=== PATIENT | male | born 1935 | race African-American/Black ===

== ENCOUNTER 2019-12-13 02:56 | Inpatient (IN) | payer MEDICARE, OTHER ==
[~2019-12-13] VITALS: Ht 185.4 cm; Wt 81.3 kg
[2019-12-13] VITALS (37 sets, daily range): BP systolic 77–207; BP diastolic 54–120
[~2019-12-13 02:56] MED LIST: [UNRECOGNIZED DRUG - REMARK]
[2019-12-13] MEDS ORDERED: SUCCINYLCHOLINE CHLORIDE 200MG/10ML IV ONE ×2 (03:09→03:30)
[2019-12-13] MEDS ORDERED: ETOMIDATE 2MG/ML 10ML VIAL IV ONE ×2 (03:09→03:30)
[2019-12-13] MEDS ORDERED: ONDANSETRON HCL 4MG/2ML INJ IV STA (03:18)
[2019-12-13] MEDS ORDERED: NITROGLYCERIN 50MG PREMIX 250 ML IV ONE (03:18)
[2019-12-13] MEDS ORDERED: MORPHINE SULFATE 4 MG/ML CPJ (NOT FOR IM USE) IV STA (03:18)
[2019-12-13] MEDS ORDERED: MIDAZOLAM HCL 2 MG/2 ML VIAL ONE (03:26)
[2019-12-13] MEDS ORDERED: MIDAZOLAM HCL 2 MG/2 ML VIAL IV ONE (03:30)
[2019-12-13] MEDS ORDERED: FUROSEMIDE 40MG/4ML VIAL IV ONE (03:30)
[2019-12-13] MEDS ORDERED: PROPOFOL 10MG/ML 100ML 100 ML IV ONE (03:30)
[2019-12-13 03:52] LABS: BASOPHILS % 0.2 % (0.0-2.0); EOSINOPHILS % 1.1 % (0.0-5.0); HEMATOCRIT. 37.4 % (42.0-52.0); HEMOGLOBIN. 12.1 g/dL (14.0-18.0); LYMPHOCYTES % 21.1 % (20.0-50.0); MEAN CORPUSCULAR HEMOGLOBIN 29.4 pg (28.0-32.0); MEAN CORPUSCULAR VOLUME 90.9 fL (80.0-94.0); MEAN PLATELET VOLUME 11.3 fl (7.4-10.4); MONOCYTES % 9.2 % (2.0-8.0); NEUTROPHILS % 68.4 % (40.0-76.0); PLATELET 147 x1000/uL (130-400); RED BLOOD CELL COUNT 4.11 mill/uL (4.7-6.1); RED CELL DISTRIBUTION WIDTH 14.6 % (11.6-14.6)
[2019-12-13 03:57] LABS: CHLORIDE 113 mEq/L (98-107)
[2019-12-13 04:46] LABS: CLARITY URINE CLOUDY (CLEAR); KETONES URINE NEGATIVE (NEGATIVE); LEUKOCYTE ESTERASE URINE 1+ (NEGATIVE); NITRITE URINE NEGATIVE (NEGATIVE); OCCULT BLOOD URINE 3+ (NEGATIVE); PH URINE 6.5 (4.5-8.0); PROTEIN URINE 1+ (NEGATIVE); SPECIFIC GRAVITY URINE 1.008 (1.005-1.030); UROBILINOGEN URINE 0.2 E.U./dL (0.2-1.0)
[2019-12-13 04:52] LABS: COLOR URINE YELLOW (YELLOW)
[2019-12-13 04:54] LABS: BG BASE EXCESS -5.7 mmol/L (-2.0-2.0); BG CARBOXYHEMOGLOBIN 0.2 % (0.5-1.5); BG DEOXYHEMOGLOBIN 1.1 % (0.0-5.0); BG FRACTION INSPIRED OXYGEN 100; BG HCO3 ACT 20.4 mmol/L (22.0-26.0); BG METHEMOGLOBIN 0.3 % (0.0-1.5); BG OXYGEN SATURATION 98.9 % (92.0-98.5); BG OXYHEMOGLOBIN 98.4 % (94.0-97.0); BG PCO2 42.1 mmHg (35.0-45.0); BG PH 7.303 (7.350-7.450); BG PO2 190.7 mmHg (75.0-100.0); BG SAMPLE SITE LEFT RADIAL; BG TIDAL VOLUME(mL) 500 mL; BG TOTAL HEMOGLOBIN 11.4 g/dL (12.0-18.0); BG VENT MODE VENT - A/C; BG VENT RATE 16 set
[2019-12-13 05:16] LABS: INR 1.1
[2019-12-13] MEDS ORDERED: VANCOMYCIN 1 G PREMIX 200 ML IV ONE (06:00)
[2019-12-13] MEDS ORDERED: PIPERACILLIN/TAZ 3.375G PREMIX 50 ML IV ONE (06:00)
[2019-12-13] MEDS: PROPOFOL 10MG/ML 100ML 100 ML IV PRN ×2 (06:46→18:29)
[2019-12-13] MEDS ORDERED: AZITHROMYCIN 500 MG in DEXT 5% WATER 250 ML IV SCH (09:15)
[2019-12-13] MEDS ORDERED: ACETAMINOPHEN 325MG TABLET PO PRN (09:15)
[2019-12-13] MEDS ORDERED: ENOXAPARIN 40MG/0.4ML SYR SUBCUT SCH (09:15)
[2019-12-13] MEDS ORDERED: SODIUM POLYSTYRENE SULFONATE 15 G/60 ML BOT PO NR (09:30)
[2019-12-13 09:52] LABS: HEMOGLOBIN 11.5 g/dL (14.0-18.0); MEAN CORPUSCULAR HEMOGLOBIN 29.4 pg (28.0-32.0); MEAN CORPUSCULAR VOLUME 89.3 fL (80.0-94.0); PLATELET 131 x1000/uL (130-400); RED BLOOD CELL COUNT 3.92 mill/uL (4.7-6.1); RED CELL DISTRIBUTION WIDTH 14.7 % (11.6-14.6)
[2019-12-13] MEDS ORDERED: AZITHROMYCIN 500 MG in DEXT 5% WATER 250 ML IV NR (10:00)
[2019-12-13] MEDS ORDERED: PIPERACILLIN/TAZ 3.375G PREMIX 50 ML IV NR (10:00)
[2019-12-13] MEDS: FAMOTIDINE 20MG/2ML VIAL IV SCH (15:23)
[2019-12-13] MEDS: ENOXAPARIN 30MG/0.3ML SYR SUBCUT SCH (15:23)
[2019-12-13 15:42] LABS: BG BASE EXCESS 0.1 mmol/L (-2.0-2.0); BG CARBOXYHEMOGLOBIN 0.4 % (0.5-1.5); BG DEOXYHEMOGLOBIN 1.9 % (0.0-5.0); BG FRACTION INSPIRED OXYGEN 60; BG HCO3 ACT 24.5 mmol/L (22.0-26.0); BG METHEMOGLOBIN 0.3 % (0.0-1.5); BG OXYGEN SATURATION 98.1 % (92.0-98.5); BG OXYHEMOGLOBIN 97.4 % (94.0-97.0); BG PCO2 38.8 mmHg (35.0-45.0); BG PH 7.418 (7.350-7.450); BG SAMPLE SITE RIGHT RADIAL; BG TIDAL VOLUME(mL) 500 mL; BG TOTAL HEMOGLOBIN 11.9 g/dL (12.0-18.0); BG VENT MODE VENT - A/C; BG VENT RATE 16 set
[2019-12-13] MEDS ORDERED: PIPERACILLIN/TAZ 3.375G PREMIX 50 ML IV SCH (16:00)
[2019-12-13] MEDS: LORAZEPAM 2MG/ML CPJ IV PRN (16:44)
[2019-12-13] MEDS ORDERED: FUROSEMIDE 100MG/10ML VIAL IVP ONE (16:45)
[2019-12-13] MEDS: PIPERACILLIN/TAZOBACTAM 2.25 G in DEXTROSE 5% WATER 50 ML IV SCH (17:32)
[2019-12-13] MEDS: NITROGLYCERIN 0.2MG/HR PATCH TOP SCH (17:32)
[2019-12-13] MEDS ORDERED: PROPOFOL 10MG/ML 100ML 100 ML IV PRN (19:15)
[2019-12-13] MEDS: HYDRALAZINE HCL 100MG TABLET PO SCH (21:38)
[2019-12-14] VITALS (86 sets, daily range): BP systolic 94–201; BP diastolic 59–141
[2019-12-14] MEDS: PIPERACILLIN/TAZOBACTAM 2.25 G in DEXTROSE 5% WATER 50 ML IV SCH ×3 (02:33→18:50)
[2019-12-14 05:48] LABS: BASOPHILS % 0.4 % (0.0-2.0); EOSINOPHILS % 0.1 % (0.0-5.0); HEMOGLOBIN. 11.5 g/dL (14.0-18.0); LYMPHOCYTES % 14.6 % (20.0-50.0); MEAN CORPUSCULAR HEMOGLOBIN 29.7 pg (28.0-32.0); MEAN CORPUSCULAR VOLUME 90.1 fL (80.0-94.0); MEAN PLATELET VOLUME 10.7 fl (7.4-10.4); MONOCYTES % 10.8 % (2.0-8.0); NEUTROPHILS % 74.1 % (40.0-76.0); PLATELET 138 x1000/uL (130-400); RED BLOOD CELL COUNT 3.88 mill/uL (4.7-6.1); RED CELL DISTRIBUTION WIDTH 14.5 % (11.6-14.6)
[2019-12-14 05:58] LABS: PHOSPHORUS 6.7 mg/dL (2.5-4.9)
[2019-12-14] MEDS: HYDRALAZINE HCL 100MG TABLET PO SCH ×3 (06:19→21:40)
[2019-12-14] MEDS: ENOXAPARIN 30MG/0.3ML SYR SUBCUT SCH ×2 (08:09→08:24)
[2019-12-14] MEDS: FAMOTIDINE 20MG/2ML VIAL IV SCH (08:09)
[2019-12-14] MEDS: NITROGLYCERIN 0.2MG/HR PATCH TOP SCH (08:09)
[2019-12-14 09:21] LABS: BG CARBOXYHEMOGLOBIN 0.3 % (0.5-1.5); BG DEOXYHEMOGLOBIN 1.6 % (0.0-5.0); BG FRACTION INSPIRED OXYGEN 50; BG HCO3 ACT 25.7 mmol/L (22.0-26.0); BG METHEMOGLOBIN 0.3 % (0.0-1.5); BG OXYGEN SATURATION 98.4 % (92.0-98.5); BG OXYHEMOGLOBIN 97.8 % (94.0-97.0); BG PCO2 33.2 mmHg (35.0-45.0); BG PH 7.507 (7.350-7.450); BG PO2 127.7 mmHg (75.0-100.0); BG SAMPLE SITE RIGHT RADIAL; BG TIDAL VOLUME(mL) 500 mL; BG TOTAL HEMOGLOBIN 11.7 g/dL (12.0-18.0); BG VENT MODE VENT - A/C; BG VENT RATE 16 set
[2019-12-14] MEDS: METOPROLOL TARTRATE 5MG/5ML VIAL IV PRN ×2 (09:57→19:45)
[2019-12-14] MEDS ORDERED: AZITHROMYCIN 500 MG in DEXT 5% WATER 250 ML IV SCH (10:00)
[2019-12-14 11:02] LABS: BG BASE EXCESS 3.9 mmol/L (-2.0-2.0); BG CARBOXYHEMOGLOBIN 0.3 % (0.5-1.5); BG DEOXYHEMOGLOBIN 1.6 % (0.0-5.0); BG FRACTION INSPIRED OXYGEN 50; BG HCO3 ACT 26.4 mmol/L (22.0-26.0); BG OXYGEN SATURATION 98.4 % (92.0-98.5); BG OXYHEMOGLOBIN 98.1 % (94.0-97.0); BG PCO2 32.6 mmHg (35.0-45.0); BG PH 7.526 (7.350-7.450); BG PO2 138.4 mmHg (75.0-100.0); BG PRESSURE SUPPORT 8; BG SAMPLE SITE RIGHT RADIAL; BG VENT MODE VENT - CPAP
[2019-12-14] MEDS: LORAZEPAM 2MG/ML CPJ IV PRN (13:05)
[2019-12-14 13:48] LABS: BG BASE EXCESS 3.7 mmol/L (-2.0-2.0); BG CARBOXYHEMOGLOBIN 0.3 % (0.5-1.5); BG DEOXYHEMOGLOBIN 2.3 % (0.0-5.0); BG FRACTION INSPIRED OXYGEN 44; BG HCO3 ACT 26.4 mmol/L (22.0-26.0); BG METHEMOGLOBIN 0.3 % (0.0-1.5); BG OXYGEN SATURATION 97.7 % (92.0-98.5); BG OXYHEMOGLOBIN 97.1 % (94.0-97.0); BG PCO2 33.8 mmHg (35.0-45.0); BG PH 7.511 (7.350-7.450); BG PO2 116.6 mmHg (75.0-100.0); BG SAMPLE SITE RIGHT RADIAL; BG TOTAL HEMOGLOBIN 12.2 g/dL (12.0-18.0); BG VENT MODE NASAL CANNULA
[2019-12-14] MEDS: FUROSEMIDE 100MG/10ML VIAL IVP NR ×2 (19:35→21:40)
[2019-12-15] VITALS (33 sets, daily range): BP systolic 131–172; BP diastolic 65–99
[2019-12-15] MEDS: PIPERACILLIN/TAZOBACTAM 2.25 G in DEXTROSE 5% WATER 50 ML IV SCH ×3 (03:41→20:59)
[2019-12-15 05:33] LABS: BASOPHILS % 0.4 % (0.0-2.0); EOSINOPHILS % 0.1 % (0.0-5.0); HEMATOCRIT. 39.3 % (42.0-52.0); HEMOGLOBIN. 12.6 g/dL (14.0-18.0); LYMPHOCYTES % 11.1 % (20.0-50.0); MEAN CORPUSCULAR HEMOGLOBIN 28.4 pg (28.0-32.0); MEAN CORPUSCULAR VOLUME 88.6 fL (80.0-94.0); MEAN PLATELET VOLUME 10.5 fl (7.4-10.4); MONOCYTES % 10.4 % (2.0-8.0); PLATELET 165 x1000/uL (130-400); RED BLOOD CELL COUNT 4.44 mill/uL (4.7-6.1); RED CELL DISTRIBUTION WIDTH 14.5 % (11.6-14.6)
[2019-12-15] MEDS: HYDRALAZINE HCL 100MG TABLET PO SCH ×3 (05:52→21:00)
[2019-12-15] MEDS ORDERED: DEXT 5%/0.45% NACL KCL 20MEQ/L 1,000 ML IV SCH (08:00)
[2019-12-15] MEDS ORDERED: POTASSIUM CHLORIDE 20MEQ TABLET SR PO NR (08:00)
[2019-12-15] MEDS: ENOXAPARIN 30MG/0.3ML SYR SUBCUT SCH (08:52)
[2019-12-15] MEDS: NITROGLYCERIN 0.2MG/HR PATCH TOP SCH (09:00)
[2019-12-15] MEDS: AZITHROMYCIN 500 MG in DEXT 5% WATER 250 ML IV SCH (09:00)
[2019-12-15] MEDS: DEXT 5% WATER + KCL 20MEQ/L 1,000 ML IV SCH ×2 (11:46→23:20)
[2019-12-15] MEDS: FAMOTIDINE 20MG/2ML VIAL IV SCH (11:46)
[2019-12-15 16:04] LABS: BG BASE EXCESS 5.3 mmol/L (-2.0-2.0); BG CARBOXYHEMOGLOBIN 0.7 % (0.5-1.5); BG DEOXYHEMOGLOBIN 9.8 % (0.0-5.0); BG HCO3 ACT 29.6 mmol/L (22.0-26.0); BG METHEMOGLOBIN 0.3 % (0.0-1.5); BG OXYGEN SATURATION 90.1 % (92.0-98.5); BG OXYHEMOGLOBIN 89.2 % (94.0-97.0); BG PCO2 42.2 mmHg (35.0-45.0); BG PH 7.464 (7.350-7.450); BG SAMPLE SITE RIGHT BRACHIAL; BG TOTAL HEMOGLOBIN 13.1 g/dL (12.0-18.0); BG VENT MODE ROOM AIR
[2019-12-16] VITALS (12 sets, daily range): BP systolic 121–150; BP diastolic 61–96
[2019-12-16] MEDS: PIPERACILLIN/TAZOBACTAM 2.25 G in DEXTROSE 5% WATER 50 ML IV SCH ×3 (04:00→18:23)
[2019-12-16] MEDS: HYDRALAZINE HCL 100MG TABLET PO SCH ×3 (05:38→21:33)
[2019-12-16] MEDS: FAMOTIDINE 20MG/2ML VIAL IV SCH (09:28)
[2019-12-16] MEDS: ENOXAPARIN 30MG/0.3ML SYR SUBCUT SCH (09:28)
[2019-12-16] MEDS: AZITHROMYCIN 500 MG in DEXT 5% WATER 250 ML IV SCH (11:47)
[2019-12-16] MEDS: NITROGLYCERIN 0.2MG/HR PATCH TOP SCH (11:48)
[2019-12-16 12:15] LABS: BASOPHILS % 0.6 % (0.0-2.0); EOSINOPHILS % 3.5 % (0.0-5.0); HEMOGLOBIN. 11.8 g/dL (14.0-18.0); LYMPHOCYTES % 20.2 % (20.0-50.0); MEAN CORPUSCULAR VOLUME 88.8 fL (80.0-94.0); MEAN PLATELET VOLUME 10.3 fl (7.4-10.4); MONOCYTES % 10.7 % (2.0-8.0); PLATELET 159 x1000/uL (130-400); RED BLOOD CELL COUNT 4.06 mill/uL (4.7-6.1); RED CELL DISTRIBUTION WIDTH 14.1 % (11.6-14.6)
[2019-12-16 12:30] LABS: PHOSPHORUS 2.3 mg/dL (2.5-4.9)
[2019-12-16] MEDS: DEXT 5% WATER + KCL 20MEQ/L 1,000 ML IV SCH (12:40)
[2019-12-16] MEDS ORDERED: KCL 20MEQ/100ML PREMIX 100 ML IV NR (16:00)
[2019-12-16] MEDS ORDERED: POTASSIUM PHOS,M-BASIC-D-BASIC 15 MMOL in DEXT 5% WATER 245 ML IV NR (16:00)
[2019-12-17] VITALS (9 sets, daily range): BP systolic 123–158; BP diastolic 48–81
[2019-12-17] MEDS: DEXT 5% WATER + KCL 20MEQ/L 1,000 ML IV SCH ×2 (01:36→15:20)
[2019-12-17] MEDS: PIPERACILLIN/TAZOBACTAM 2.25 G in DEXTROSE 5% WATER 50 ML IV SCH ×3 (02:51→21:30)
[2019-12-17] MEDS: HYDRALAZINE HCL 100MG TABLET PO SCH ×3 (05:15→20:39)
[2019-12-17 05:45] LABS: BASOPHILS % 0.4 % (0.0-2.0); EOSINOPHILS % 5.1 % (0.0-5.0); HEMATOCRIT. 33.8 % (42.0-52.0); HEMOGLOBIN. 11.1 g/dL (14.0-18.0); LYMPHOCYTES % 22.4 % (20.0-50.0); MEAN CORPUSCULAR HEMOGLOBIN 29.3 pg (28.0-32.0); MEAN PLATELET VOLUME 9.9 fl (7.4-10.4); MONOCYTES % 10.8 % (2.0-8.0); NEUTROPHILS % 61.3 % (40.0-76.0); PLATELET 173 x1000/uL (130-400); RED CELL DISTRIBUTION WIDTH 13.8 % (11.6-14.6)
[2019-12-17 05:58] LABS: CHLORIDE 112 mEq/L (98-107)
[2019-12-17 06:04] LABS: PHOSPHORUS 2.9 mg/dL (2.5-4.9)
[2019-12-17] MEDS: FAMOTIDINE 20MG/2ML VIAL IV SCH (08:20)
[2019-12-17] MEDS: ENOXAPARIN 30MG/0.3ML SYR SUBCUT SCH (08:20)
[2019-12-17] MEDS: NITROGLYCERIN 0.2MG/HR PATCH TOP SCH (08:20)
[2019-12-17] MEDS: AZITHROMYCIN 500 MG in DEXT 5% WATER 250 ML IV SCH (08:20)
[2019-12-18] VITALS: BP 148/76
[2019-12-18 02:00] VITALS: BP 140/78
[2019-12-18] MEDS: PIPERACILLIN/TAZOBACTAM 2.25 G in DEXTROSE 5% WATER 50 ML IV SCH ×2 (02:12→11:00)
[2019-12-18] MEDS: DEXT 5% WATER + KCL 20MEQ/L 1,000 ML IV SCH (02:12)
[2019-12-18 04:00] VITALS: BP 123/78
[2019-12-18 06:00] VITALS: BP 150/84
[2019-12-18] MEDS: HYDRALAZINE HCL 100MG TABLET PO SCH ×2 (06:00→14:00)
[2019-12-18 07:07] LABS: BASOPHILS % 0.5 % (0.0-2.0); EOSINOPHILS % 5.8 % (0.0-5.0); HEMATOCRIT. 35.1 % (42.0-52.0); HEMOGLOBIN. 11.6 g/dL (14.0-18.0); LYMPHOCYTES % 24.9 % (20.0-50.0); MEAN CORPUSCULAR HEMOGLOBIN 29.4 pg (28.0-32.0); MEAN CORPUSCULAR VOLUME 88.9 fL (80.0-94.0); MEAN PLATELET VOLUME 10.2 fl (7.4-10.4); MONOCYTES % 11.3 % (2.0-8.0); NEUTROPHILS % 57.5 % (40.0-76.0); PLATELET 179 x1000/uL (130-400); RED BLOOD CELL COUNT 3.95 mill/uL (4.7-6.1); RED CELL DISTRIBUTION WIDTH 14.2 % (11.6-14.6)
[2019-12-18 07:20] LABS: CHLORIDE 110 mEq/L (98-107)
[2019-12-18] MEDS: FAMOTIDINE 20MG/2ML VIAL IV SCH (09:00)
[2019-12-18] MEDS: NITROGLYCERIN 0.2MG/HR PATCH TOP SCH (09:00)
[2019-12-18] MEDS: ENOXAPARIN 30MG/0.3ML SYR SUBCUT SCH (09:00)
[2019-12-18] MEDS ORDERED: POTASSIUM CHLORIDE 20MEQ TABLET SR PO NR (11:30)
[2019-12-19] MEDS ORDERED: ENOXAPARIN 40MG/0.4ML SYR SUBCUT SCH (09:00)
[2019-12-19] MEDS ORDERED: FAMOTIDINE 20MG TABLET PO SCH (09:00)
== END 2019-12-18 16:52 | disposition home or self-care (01) | DRG 871 ==
LOC: ER 03:00 → MICUSO 05:00 → EDBEDREQ 05:04 → EDBEDREQTM 05:04 → ENRESERV 12:41 → 5EST 12-15 13:21
PROVIDERS: ADMIT Ophthalmology; ATTEND Ophthalmology
PROC: 5A1945Z Respiratory Ventilation, 24-96 Consecutive Hours (ICD-10-PCS; principal; 2019-12-13)
PROC: 0BH18EZ Insertion of Endotracheal Airway into Trachea, Via Natural or Artificial Opening Endoscopic (ICD-10-PCS; 2019-12-13)
DX: A41.9 Sepsis, unspecified organism (principal); J96.01 Acute respiratory failure with hypoxia; I21.4 Non-ST elevation (NSTEMI) myocardial infarction; J18.9 Pneumonia, unspecified organism; N17.9 Acute kidney failure, unspecified; N13.8 Other obstructive and reflux uropathy; E44.1 Mild protein-calorie malnutrition; E87.2 Acidosis; E87.0 Hyperosmolality and hypernatremia; D64.9 Anemia, unspecified; E87.5 Hyperkalemia; R31.29 Other microscopic hematuria; N40.1 Benign prostatic hyperplasia with lower urinary tract symptoms; E87.6 Hypokalemia; I50.9 Heart failure, unspecified; I11.0 Hypertensive heart disease with heart failure; N32.0 Bladder-neck obstruction; Z20.828 Contact with and (suspected) exposure to other viral communicable diseases; Z82.49 Family history of ischemic heart disease and other diseases of the circulatory system; Z68.23 Body mass index [BMI] 23.0-23.9, adult
CPT/HCPCS: 36415; 36600; 71045; 74176; 78580; 80048; 80053; 81003; 82375; 82550; 82805; 82962; 83605; 83615; 83735; 83880; 84100; 84145; 84153; 84478; 84484; 85025; 85027; 85379; 87420; 87635; 87804; 92610; 93005; 93306; 94002; 94003; 94618; 96365; 99291; J0330; J0456; J1650; J1940; J2060; J2250; J2270; J2543; J2704; J3370; J3480; J3490; J7060; G0103